=== PATIENT | male | born 1970 | race Caucasian/White ===

== ENCOUNTER 2019-11-14 12:57 | Outpatient (CLI) | payer OTHER ==
[2019-11-14] MEDS ORDERED: IOTHALAMATE MEGLUMINE 50 ML VIAL ONE (13:04)
[2019-11-14] MEDS ORDERED: BUFFERED LIDOCAINE 10 ML SYRINGE ONE (13:04)
[2019-11-14] MEDS ORDERED: GADOBUTROL 10 MMOL/10 ML VIAL ONE (13:05)
[2019-11-14] MEDS ORDERED: GADOBUTROL 10 MMOL/10 ML VIAL IVP ONE (13:52)
[2019-11-14] MEDS ORDERED: IOTHALAMATE MEGLUMINE 50 ML VIAL IVP ONE (13:52)
[2019-11-14] MEDS ORDERED: BUFFERED LIDOCAINE 10 ML SYRINGE IU ONE (13:52)
--- NOTE | 2019-11-14 14:42 | XRAY Report ---
Reason: PAIN IN RT SHLDR Procedure Date: 11/14/2019 Accession Number: [id number] / [id number] Procedure: FL - Arthrogram Needle Placement CPT Code: Final Report FULL RESULT: EXAM: RIGHT SHOULDER ARTHROGRAPHIC INJECTION WITH FLUOROSCOPIC GUIDANCE. EXAM DATE: 11/14/2019 01:51 PM. CLINICAL HISTORY: Pain in right shoulder. COMPARISON: None. TECHNIQUE: The risks, benefits, and alternatives of the procedure were discussed with the patient. All questions were answered. Written and verbal consent were obtained. The glenohumeral joint was marked under fluoroscopy and prepped and draped in a sterile manner. Local anesthesia was performed with 1% lidocaine. A 22-gauge needle was then inserted into the glenohumeral joint. 10 mL of a solution containing 25% 1% lidocaine, 25% iodinated contrast, and a 1:200 dilution of gadolinium contrast in sterile saline was then injected. The needle was removed without immediate complication. Other: None. Fluoroscopy Time: 0.1 minutes. Number of Images: 2. FINDINGS: Bones and joints: No fracture or subluxation. Injection: Fluoroscopic images demonstrate needle placement and contrast in the glenohumeral joint. No contrast extravasation outside of the glenohumeral joint. IMPRESSION: Successful fluoroscopically guided arthrographic injection of the shoulder. RADIA
--- NOTE | 2019-11-14 15:33 | MRI Report ---
Reason: PAIN IN RT SLDR Procedure Date: 11/14/2019 Accession Number: [id number] / [id number] Procedure: MRI - Arthrogram Shoulder RT CPT Code: Final Report FULL RESULT: EXAM: RIGHT SHOULDER MRI ARTHROGRAM WITH CONTRAST EXAM DATE: 11/14/2019 02:55 PM. CLINICAL HISTORY: Pain in right shoulder. COMPARISON: None. TECHNIQUE: Multiplanar, multisequence T1-weighted and fluid-sensitive sequences of the shoulder after an arthrographic injection of dilute gadolinium, dictated under a separate exam. Other: None. FINDINGS: Acromioclavicular Region: The acromion is type II unipartite. AC joint is moderately osteoarthritic with some synovial hypertrophic change and marginal arthrosis. The coracoacromial and coracoclavicular ligaments are intact. There is a trace amount of contrast in the bursa. Glenohumeral Region: No subluxation. No loose bodies. The articular cartilage is unremarkable. The glenohumeral ligaments and joint capsule are unremarkable. Bone Marrow: No fracture, marrow edema or bone lesions. Labrum: The labrum is unremarkable. Biceps Tendon: The long head of the biceps tendon and biceps alice are intact. Musculature/Rotator Cuff: Supraspinatus tendon is thickened and shows some increased T2 signal distally. With contrast material, there is a small amount of contrast material which outlines a focal defect in the anterior distal supraspinatus fibers. Series 701 image 7, series 801 image 24. The small focal defect is about 5 mm in diameter. Additional increased T2 signal seen at the posterior aspect of the supraspinatus. Infraspinatus tendon is thickened and shows increased T2 signal. Subscapularis also slightly thickened and increased T2 signal is probably secondary to injection artifact rather than pathology. No focal muscle bundle edema or fatty atrophy. Other: The subcutaneous tissues are unremarkable. IMPRESSION: 1. Type II unipartite undersurface osseous acromion shape. Moderate AC joint osteoarthritic change. Trace amount of contrast is seen in the bursa. 2. There is a small focal full-thickness tear anterior undersurface distal supraspinatus. Some adjacent tendinitis is also seen at the mid and posterior portion of the supraspinatus. Mild tendinopathy also seen in the infraspinatus. Increased T2 signal in the distal subscapularis is thought to be secondary to an artifact of injection. 3. Labrum, capsular structures and long head of biceps appear unremarkable. 4. No bony abnormalities, no significant chondromalacia. No loose bodies. RADIA
== END 2019-11-14 12:58 | disposition home or self-care (01) ==
LOC: DI 12:57
DX: M19.011 Primary osteoarthritis, right shoulder (principal); M75.101 Unspecified rotator cuff tear or rupture of right shoulder, not specified as traumatic; M75.81 Other shoulder lesions, right shoulder
CPT/HCPCS: 23350; 73222; 77002; A9585; Q9961

== ENCOUNTER 2020-06-15 09:58 | Emergency (ER) | payer OTHER ==
[2020-06-15 10:12] VITALS: BP 145/82
--- NOTE | 2020-06-15 11:15 | XRAY Report ---
PROCEDURE: Foot 3 View RT INDICATIONS: heal pain TECHNIQUE: 3 views of the foot were acquired. COMPARISON: None FINDINGS: Bones: No fractures or dislocations. No suspicious bony lesions. Soft tissues: No tibiotalar joint effusion. Achilles tendon appears normal. IMPRESSION: No visualized acute fracture or dislocation. However, occult injury cannot be excluded. Recommend soy rt interval imaging follow-up in 7-10 days as clinically indicated for additional evaluation. Reviewed by: Flor Valadez MD on 06/15/2020 11:14 AM PDT Approved by: Flor Valadez MD on 06/15/2020 11:14 AM PDT Station ID: [id number]
--- NOTE | 2020-06-15 11:23 | ED Physician Documentation ---
PD HPI LOWER EXT INJURY - Stated complaint Stated Complaint: RT FOOT INJ - Chief complaint Chief Complaint: Ext Problem - History obtained from History obtained from: Patient - History of Present Illness PD HPI LOW EXT INJURY LOCATION: Left, Foot (heal) Type of injury: Other (stretch) Where injury occurred: Home Timing - onset: How many days ago (5) Timing - duration: Days (5) Timing - details: Abrupt onset, Still present Improved by: Rest, Immobilization Worsened by: Moving, Palpating Associated symptoms: No: Weakness, Numbness, Tingling, Swelling Contributing factors: No: Anticoagulated, Prior ortho surgery Similar symptoms before: Has not had sx before Recently seen: Not recently seen - Additional information Additional information: Previously well 49-year-old male was bathing his dog 5 days ago he was bent at the knees and had his toes dorsiflexed and placed underneath him stretching his Achilles tendon on his heel. He began to have some pain associated with this area. He has subsequently expected this to resolve and it is slowly worsened instead. He is able to tolerate walking in his work boots with a bit of a limp and he has a specific area of point tenderness. Review of Systems Constitutional: denies: Fever Eyes: denies: Decreased vision Ears: denies: Ear pain Nose: denies: Congestion Throat: denies: Sore throat Respiratory: denies: Dyspnea, Cough GI: denies: Vomiting PD PAST MEDICAL HISTORY - Past Medical History Past Medical History: No - Past Surgical History Past Surgical History: No - Allergies Allergies/Adverse Reactions: Allergies Allergy/AdvReac Type Severity Reaction Status Date / Time No Known Drug Allergies Allergy Verified 06/15/20 10:12 - Social History Does the pt smoke?: Yes Smoking Status: Current some day smoker Does the pt drink ETOH?: Yes ETOH Use: Beer - Immunizations Immunizations are current?: Yes PD ED PE NORMAL - Vitals Vital signs reviewed: Yes (hypertensive ) - General General: Alert and oriented X 3, No acute distress, Well developed/nourished - HEENT HEENT: Atraumatic, PERRL, EOMI - Respiratory Respiratory: No respiratory distress - Derm Derm: Normal color, Warm and dry, No rash - Extremities Extremities: No deformity, Normal ROM s pain, No edema, No calf tenderness / cord, Other (Over the posterior aspect of the heel at the insertion of the Achilles tendon to the calcaneus posteriorly there is an area of tenderness without swelling or mass appreciated. There is no erythema. The patient is able to flex and extend the foot without difficulty.) - Neuro Neuro: Alert and oriented X 3, addiction professional 2-12 intact, No motor deficit, No sensory deficit, Normal speech Eye Opening: Spontaneous Motor: Obeys Commands Verbal: Oriented GCS Score: 15 - Psych Psych: Normal mood, Normal affect Results - Vitals Vitals: Vital Signs - 24 hr 06/15/20 10:10 Temperature 36.7 C Heart Rate 70 Respiratory 17 Rate Blood Pressure 145/82 H O2 Saturation 96 Oxygen O2 Source Room air - Rads (name of study) foot Radiology: Prelim report reviewed (Impression: No visualized acute fracture or dislocation. However, occult injury cannot be excluded. Recommend short interval imaging follow-up in 7 to 10 days as clinically indicated for additional evaluation.), EMP read indepedently, See rad report PD MEDICAL DECISION MAKING - ED course Complexity details: reviewed results, re-evaluated patient, considered differential, d/w patient ED course: 49-year-old male appears to have strained his Achilles tendon insertion and he is placed into a walking boot and he is given a dose of dexamethasone 10 mg orally. His x-ray is negative for evidence of fracture. We are expecting to have him in this walking boot for up to 2 weeks. Departure - Departure Disposition: 01 Home, Self Care Clinical Impression: Strain of right Achilles tendon, initial encounter Condition: Stable Instructions: Achilles Tendonitis Follow-Up: Brendan Saldivar MD [Primary Care Provider] - Comments: Today it looks like you have strained the insertion of the Achilles tendon and the treatment for it is to rest the area for about 2 weeks. Wear the walking boot anytime you are out and about. Discharge Date/Time: 06/15/20 12:00
[2020-06-15] MEDS ORDERED: CHERRY SYRUP 10 ML UDC PO ONE (11:37)
[2020-06-15] MEDS ORDERED: DEXAMETHASONE 10 MG/ML VIAL PO STA (11:37)
== END 2020-06-15 12:00 | disposition home or self-care (01) ==
LOC: ED 09:58
DX: S86.011A Strain of right Achilles tendon, initial encounter (principal); X50.1XXA Overexertion from prolonged static or awkward postures, initial encounter; Y93.K3 Activity, grooming and shearing an animal; Y92.009 Unspecified place in unspecified non-institutional (private) residence as the place of occurrence of the external cause; R03.0 Elevated blood-pressure reading, without diagnosis of hypertension; F17.200 Nicotine dependence, unspecified, uncomplicated
CPT/HCPCS: 73630; 99282; 99283; A9270

== ENCOUNTER 2020-06-25 13:42 | Outpatient (CLI) | payer OTHER ==
[~2020-06-25 13:42] MED LIST: BUFFERED LIDOCAINE 10 ML SYRINGE ONE; ROPIVACAINE 0.5% PF 20 ML AMPULE ONE; TRIAMCINOLONE 40 MG/ML VIAL ONE
--- NOTE | 2020-06-25 16:20 | Ultrasound Report ---
PROCEDURE: Injection Single Tendon INDICATIONS: RT SHOULDER BICIPITAL TENDINITIS TECHNIQUE: The indications, alternatives, benefits, risks, and complications of the procedure were explained to the patient. Written informed consent was obtained and placed in the chart. The patient was placed in an appropriate position on the ultrasound table, and a site was chosen for percutaneous access und er ultrasound guidance. Local anesthetic was administered using a 1% lidocaine solution. A hypoderm ic or spinal needle was then used to access the symptomatic site. Needle tip location was confirmed b y real time ultrasound imaging, followed by steroid administration. The needle was then withdrawn, a nd a bandage applied to the puncture site. FINDINGS: Site injected: Right biceps long head tendon sheath Medications injected: 1.5 mL of 40 mg/mL Kenalog and 0.5% Ropivacaine mixture. Complications: None. IMPRESSION: Successful ultrasound guided administration of steroid and anaesthetic solution into the right biceps long head tendon sheath. Reviewed by: Lucho Prajapati MD on 06/25/2020 2:58 PM PDT Approved by: Lucho Prajapati MD on 06/25/2020 2:58 PM PDT Station ID: [id number]
== END 2020-06-25 13:43 | disposition home or self-care (01) ==
LOC: DI 13:42
PROVIDERS: ATTEND Orthopaedic Surgery
DX: M75.21 Bicipital tendinitis, right shoulder (principal); M75.51 Bursitis of right shoulder
CPT/HCPCS: 20550

== ENCOUNTER 2020-10-01 10:15 | Outpatient (CLI) | payer OTHER ==
[2020-10-01] MEDS ORDERED: GADOBUTROL 10 MMOL/10 ML VIAL ONE (11:29)
[2020-10-01] MEDS ORDERED: GADOBUTROL 10 MMOL/10 ML VIAL IVP ONE (11:36)
--- NOTE | 2020-10-01 16:33 | MRI Report ---
PROCEDURE: Hand LT W/WO INDICATIONS: MASS OVER 4TH RAY IN THE PALM CONTRAST: IV CONTRAST: Gadavist ml: 9 TECHNIQUE: Noncontrast coronal T1 spin echo and T2 fast spin echo with fat saturation, axial proton density fast spin echo and T2 fast spin echo with fat saturation, axial T1 spin echo with fat saturation, sagitta l T1 spin echo and STIR through the hand and fingers. Post-contrast axial, coronal, and sagittal T1 spin echo through the hand and fingers. COMPARISON: None. FINDINGS: Image quality: Diagnostic. The distal second through fifth digits are not fully included on the current study. Bones: The bones are normally aligned, without marrow contusions or fractures. No bone contusions o r fractures. No suspicious intra-osseous mass lesions or enhancement. Soft tissues: There is a cutaneous marker on the volar ulnar aspect of the hand between the fourth a nd fifth metatarsal shafts in the area of palpable abnormality. No discrete subjacent mass or fluid c ollection is identified. The subjacent fourth lumbrical muscle is normal in appearance. Remaining vis ualized muscles also demonstrate normal bulk and internal signal. No intramuscular masses identified . No ganglion cysts. The visualized flexor and extensor tendons appear intact without tenosynovial f luid collections. The carpal tunnel structures appear within normal limits including the median nerve . IMPRESSION: 1. No discrete mass or fluid collection identified in the area of palpable abnormality. The subjacent fourth lumbrical muscle appears within normal limits. Reviewed by: Dillon Hassan MD on 10/01/2020 4:32 PM PST Approved by: Dillon Hassan MD on 10/01/2020 4:32 PM PST Station ID: [id number]
== END 2020-10-01 10:16 | disposition home or self-care (01) ==
LOC: DI 10:15
PROVIDERS: ATTEND Orthopaedic Surgery
DX: R22.32 Localized swelling, mass and lump, left upper limb (principal); M65.80 Other synovitis and tenosynovitis, unspecified site
CPT/HCPCS: 73220; A9585